=== PATIENT | female | born 1990 | race Caucasian/White ===

== ENCOUNTER 2018-09-01 23:25 | Emergency (ER) | payer OTHER ==
[~2018-09-01] VITALS: Ht 157.5 cm; Wt 65.9 kg
[2018-09-02] MEDS ORDERED: IBUPROFEN 400 MG TABLET PO ONE
[2018-09-02 00:48] VITALS: BP 116/75
== END 2018-09-02 01:16 | disposition home or self-care (01) ==
LOC: EMS 23:27
DX: S13.4XXA Sprain of ligaments of cervical spine, initial encounter (principal); V49.9XXA Car occupant (driver) (passenger) injured in unspecified traffic accident, initial encounter; Y93.89 Activity, other specified; Y92.89 Other specified places as the place of occurrence of the external cause; Y99.8 Other external cause status
CPT/HCPCS: 99282